=== PATIENT | female | born 1970 | race Hispanic/Latino ===

== ENCOUNTER 2016-06-18 06:34 | Day surgery (SDC) | payer OTHER ==
[2016-06-12 08:43] VITALS: BMI 27.7
[2016-06-18] MEDS ORDERED: Bacitracin 50,000 UNIT in Sodium Chloride 0.9% Irrig 1,000 ML IR SCH (07:15)
[2016-06-18] MEDS ORDERED: ceFAZolin IV 2 gm in Dextrose 50 ML IVPB ONE (07:26)
[2016-06-18] MEDS ORDERED: EPINEPHrine 1:1000 Nasal Sol(30mL) ONE (07:27)
--- NOTE | 2016-06-18 07:33 | CP.SDSHP ---
Same Day Surgery H & P - History Proposed Procedure: Left knee patellar tendon repair Pre-Op Diagnosis: Left patellar tendon rupture - Previous Medical/Surgical History Cardiac: Hypertension, Previous NE, Other Neuro: TIA/CVA Comments: PFO, echo and stress test on chart. CVA. highcholesterol. medical and cardiac clearance on chart. plavix held 7 days - Allergies Allergies: Allergies blueberry Allergy (Intermediate, Verified 06/05/15 12:21) RASH/SWELLING OF THROAT - Physical Exam Mental Status: Alert & Oriented x3 Heart: WNL Lungs: WNL - {Optional Preform as Required} Ortho: Other (LLE: +ROM ankle/toes, sensation intact, +DP/PT pulses, calves soft NT neg homans) Other Pertinent Findings: atient Name / ID : WALE ZHOU / [id number]. Exam Date : 06/06/2016 17:44:42 ( Approved ). Study Comment : Sex / Age : F / 46Y. Creator : Baudilio Dotson MD. Dictator : Baudilio Dtoson MD. Strickler Attendant : Brake Mechanic : Baudilio Dotson MD. Approver2 : Report Date : 06/09/2016 10:24:54. My Comment : . MRI left knee. History: Patellar tendon rupture. Comparison: None available. Technique: Multi-echo multiplanar sequences were performed through the left knee without the use of intravenous contrast. Findings: Thickening, fraying, and increased signal seen within the visualized anterior cruciate ligament suggestive for a moderate grade sprain with some partial interstitial tearing. Posterior cruciate ligament is preserved. Linear grade 1 intrasubstance degeneration in the posterior horn of the medial meniscus without gross tear. Globular grade 2 intrasubstance degeneration in the anterior root and horn of the lateral meniscus. Low-grade sprain of the medial collateral ligament. Lateral collateral ligament complex structures appear preserved. Quadriceps tendon is preserved. Complete rupture of the patellar tendon from its insertion on the inferior bony patella with superior retraction of the bony patella with associated bone bruising at the inferior bony patella. Prominent amount of fluid, edema, and hemorrhage within the prepatellar soft tissues. Partial tearing of the lateral patellar retinaculum with a moderate grade sprain of the medial patellar retinaculum. Patellar cartilage is preserved. Femorotibial articular cartilage is grossly preserved. Three and 5 millimeter subchondral cyst formation noted within the mid proximal tibia near the intercondylar notch. Additional prominent amount of loculated fluid, edema, and hemorrhage seen at the lateral soft tissues at the level of the distal lateral femur. Impression: 1. Complete rupture of the patellar tendon from its insertion on the inferior bony patella with superior retraction of the bony patella with associated bone bruising at the inferior bony patella. The patellar tendon is displaced approximately 1.2 centimeters inferiorly. Prominent amount of fluid, edema, and hemorrhage within the prepatellar soft tissues. 2. Partial tearing of the lateral patellar retinaculum with a moderate grade sprain of the medial patellar retinaculum. 3. Thickening, fraying, and increased signal seen within the visualized anterior cruciate ligament suggestive for a moderate grade sprain with some partial interstitial tearing. 4. Linear grade 1 intrasubstance degeneration in the posterior horn of the medial meniscus without gross tear. Globular grade 2 intrasubstance degeneration in the anterior root and horn of the lateral meniscus. 5. Low-grade sprain of the medial collateral ligament. 6. Three and 5 millimeter subchondral cyst formation noted within the mid proximal tibia near the intercondylar notch. 7. Additional prominent amount of loculated fluid , edema, and hemorrhage seen at the lateral soft tissues at the level of the distal lateral femur. These findings were preliminarily reported at 7:16 p.m. on 06/06/[address] Carmelita Ferguson from [facility]. - Impression Impression: 46F with left knee patellar tendon rupture for repair Pt. Evaluated Today:Candidate for Anesthesia & Procedure: Yes - Date & Time Date: 06/18/16 Time: 07:34 Short Stay Discharge - Short Stay Discharge Admitting Diagnosis/Reason for Visit: PATELLAR TENDON TEAR Disposition: HOME/ ROUTINE Past Patient History - Infectious Disease Hx of Infectious Diseases: None - Tetanus Immunizations Tetanus Immunization: Unknown - Past Medical History & Family History Past Medical History?: Yes - Past Social History Smoking Status: Never Smoked - CARDIAC Hx Cardiac Disorders: Yes Hx Heart Attack: Yes (NSTEMI 2010, 05/28 neg EST at ) Hx Hypercholesterolemia: Yes Hx Hypertension: Yes Hx Pacemaker: No Other/Comment: Hole in the heart - PULMONARY Hx Respiratory Disorders: No - NEUROLOGICAL Hx Neurological Disorder: Yes Hx Transient Ischemic Attacks (TIA): Yes (2 years ago) - HEENT Hx HEENT Problems: No - RENAL Hx Chronic Kidney Disease: No - ENDOCRINE/METABOLIC Hx Endocrine Disorders: No - HEMATOLOGICAL/ONCOLOGICAL Hx Blood Disorders: No - INTEGUMENTARY Hx Dermatological Problems: No - MUSCULOSKELETAL/RHEUMATOLOGICAL Hx Musculoskeletal Disorders: Yes (torn patella tendon) Hx Falls: Yes - GASTROINTESTINAL Hx Gastrointestinal Disorders: No - GENITOURINARY/GYNECOLOGICAL Hx Genitourinary Disorders: No - PSYCHIATRIC Hx Psychophysiologic Disorder: No - SURGICAL HISTORY Hx Surgeries: Yes Hx Section: Yes Other/Comment: JOHN - ANESTHESIA Hx Anesthesia: Yes Hx Anesthesia Reactions: Yes (SEVERE VOMITING) Hx Malignant Hyperthermia: No Has any member of the family had a problem w/ anesthesia?: No
[2016-06-18] MEDS ORDERED: Midazolam 2 MG/2 ML VIAL ONE ×2 (08:02→14:16)
[2016-06-18] MEDS ORDERED: Propofol 10 mg/ml Inj (20 ML) ONE (08:02)
[2016-06-18] MEDS ORDERED: Lactated Ringer's 1,000 ML IV ONE ×4 (08:18→11:11)
[2016-06-18] MEDS ORDERED: Succinylcholine Chloride 20 mg/ml Syr (5 ml) IV ONE (09:27)
[2016-06-18] MEDS ORDERED: Rocuronium 10 mg/ml (5 ml) ONE (09:27)
[2016-06-18] MEDS ORDERED: Neostigmine Methylsulfate 3mg/3ml Syringe IV ONE (11:33)
[2016-06-18] MEDS ORDERED: Atropine Sulfate 0.4 mg/ml (0.8mg/2ml) Syringe IV ONE (11:33)
[2016-06-18] MEDS ORDERED: Oxycodone/Acetaminophen 5/325 mg Tab PO PRN (11:41)
[2016-06-18] MEDS ORDERED: Sodium Chloride 0.9% 1,000 ML IV SCH (11:45)
[2016-06-18] MEDS ORDERED: ceFAZolin IV 2 gm in Dextrose 50 ML IVPB SCH (11:45)
[2016-06-18] MEDS: HYDROmorphone 0.5 mg/0.5 ml ISec IVP PRN ×6 (11:55→22:36)
[2016-06-18] MEDS ORDERED: Lactated Ringer's 1,000 ML IV SCH (12:00)
--- NOTE | 2016-06-18 12:55 | PCM.SURG1 ---
Surgeon's Initial Post Op Note - Surgeon's Notes Surgeon: Chaz Smith MD Road Grader: Fuad Morris PA-C Type of Anesthesia: General Endo Anesthesia Administered By: Dr. Michaels Pre-Operative Diagnosis: Left patellar tendon tear. left medial meniscal tear Operative Findings: Tourniquet: 90 min @ 300mmHg Post-Operative Diagnosis: same Operation Performed: Left patellar tendon primary repair. left arthroscopic medial meniscal repair. synovectomy. chondroplasty trochlea Specimen/Specimens Removed: none Estimated Blood Loss: EBL {In ML}: 50 Blood Products Given: N/A Drains Used: No Drains Post-Op Condition: Fair Date of Surgery/Procedure: 06/18/16 Time of Surgery/Procedure: 12:59
[2016-06-18] MEDS ORDERED: Bupivacaine 0.5% Inj(30mL) ONE (13:17)
[2016-06-18] MEDS ORDERED: Sodium Chloride 0.9% 20 ML IV ONE (13:17)
--- NOTE | 2016-06-18 14:36 | PCM.ANESB3 ---
Femoral Nerve Block - Femoral Nerve Block Date of Procedure: 06/18/16 Anesthesiologist: Caitlyn Pre-Procedure Diagnosis: Patellar Tendon Tear Post-Procedure Diagnosis: Patellar Tendon Tear Procedure Performed: Femoral Nerve Block Left - Procedure Femoral Nerve Block: The procedure was explained to the patient that it is for the post-operative pain management. Consent was obtained after a thorough discussion with the patient regarding the benefits and possible complications of local anesthetic block of the femoral nerve at the inguinal crease area. The patient was brought to the operating room and standard monitors were applied. Time-out was held with the circulating nurse to confirm the correct surgery and the appropriate block. After applying oxygen by nasal cannula and administering IV Sedation, patient was placed in supine position with fully extended lower extremities and the left groin exposed. The femoral artery was then carefully palpated. The ultrasound transducer was then applied to this area in the transverse plane and the femoral nerve was visualized lateral to the femoral artery and underneath the fascia iliaca. After thorough identification, the inguinal crease area was prepped with chloroprep. At this point, a #22 gauge Stimuplex 4-inch needle was inserted immediately lateral to the femoral artery pulse at the inguinal crease and advanced perpendicularly. The needle was inserted to the ultrasound transducer in-plane towards the femoral nerve in a [id number] direction. Needle advancement was performed carefully under direct ultrasound visualization. After negative aspiration, _20 cc of 0.25 % bupivicaine was injected. Under ultrasound guidance the local anesthetics were observed spreading below fascia iliaca and around the femoral nerve. The needle was removed intact and sterile dressing was applied. The patient had stable vital signs, was conscious and in no apparent distress.
[2016-06-18] MEDS ORDERED: Midazolam 2 MG/2 ML VIAL IVP ONE (15:23)
--- NOTE | 2016-06-18 15:26 | RAD ---
PROCEDURE: Left Knee Radiographs. HISTORY: COMPARISON: None available. FINDINGS: Images are obtained through a cast which obscures osseous detail. Surgical mik. Degenerative changes. Rotated lateral view limits evaluation. No acute displaced fracture or dislocation identified. IMPRESSION: Images are obtained through a cast which obscures osseous detail. Surgical mik. Degenerative changes.
[2016-06-18] MEDS ORDERED: Sodium Chloride 0.9% 1,000 ML IV ONE (15:50)
[2016-06-18 16:56] VITALS: RESP 20
[2016-06-19 01:43] VITALS: O2SAT 99
[2016-06-19] MEDS: HYDROmorphone 0.5 mg/0.5 ml ISec IVP PRN ×2 (02:26→06:47)
--- NOTE | 2016-06-19 07:48 | CP.PCM.PN ---
Subjective - Date & Time of Evaluation Date of Evaluation: 06/19/16 Time of Evaluation: 07:45 - Subjective Subjective: Patient states she had n/v overnight, but currently no nausea. She says she is dizzy after they gave her pain medication. She says she feels weak. Denies CP/ SOB/dizziness. Denies numbness/tingling. Objective - Vital Signs/Intake and Output Vital Signs (last 24 hours): Temp Pulse Resp BP Pulse Ox 98.7 F 75 20 125/78 99 06/18/16 23:10 06/18/16 23:10 06/18/16 23:10 06/18/16 23:10 06/18/16 23:10 Intake and Output: 06/19/16 06/19/16 06:59 18:59 Intake Total 420 Output Total 300 Balance 120 - Medications Medications: Current Medications Aspirin (Aspirin Chewable) 81 mg PO DAILY [facility] Clopidogrel Bisulfate (Plavix) 75 mg PO QAM [facility] Docusate Sodium (Colace) 100 mg PO BID [facility] Last Admin: 06/18/16 17:31 Dose: 100 mg Enoxaparin Sodium (Lovenox) 40 mg SC DAILY [facility] Hydromorphone HCl (Dilaudid) 0.5 mg IVP Q4H PRN PRN Reason: Pain, severe (8-10) Last Admin: 06/19/16 06:47 Dose: 0.5 mg Losartan Potassium (Cozaar) 25 mg PO QAM [facility] Metoprolol Succinate (Toprol Xl) 50 mg PO QAM [facility] Ondansetron HCl (Zofran Inj) 4 mg IVP Q4H PRN PRN Reason: Nausea/Vomiting Oxycodone/Acetaminophen (Percocet 5/325 Mg Tab) 2 tab PO Q4H PRN PRN Reason: Pain, severe (8-10) Stop: 06/21/16 11:42 Rosuvastatin Calcium (Crestor) 10 mg PO [facility] Last Admin: 06/18/16 21:21 Dose: 10 mg - Constitutional Appears: Well, No Acute Distress - Extremities Exam Additional comments: +DP/PT pulses cast intact heel elevated sensation intact to SP/DP/saph/med/lat plant - Neurological Exam Neurological Exam: Alert, Awake, Oriented x3 Neuro motor strength exam: Left Lower Extremity: 5 (+DF/PF ankle, flex/ext toes) - Psychiatric Exam Psychiatric exam: Normal Affect, Normal Mood - Skin Skin Exam: Dry, Intact, Normal Color, Warm Assessment and Plan (1) Rupture of left patellar tendon Assessment & Plan: POD#1 s/p left patellar tendon primary repair, left knee arthroscopy and medial meniscal repair -will change medication to address dizziness -zofran prn nausea -encourage PO intake -med/cardiology consults as per Dr. Delong -PT/OT -VTE proph with lovenox -restart plavix today -will plan for d/c home in afternoon if patient tolerates PT and dizziness improves. -d/w Dr Delong, agrees with above Status: Acute
[2016-06-19 07:57] LABS: HEMATOCRIT 37.4 % (34.0-47.0); MEAN CELL VOLUME 95.7 fL (81.0-99.0); MEAN CORPUSCULAR HEMOGLOBIN 33.4 pg (27.0-31.0); MEAN CORPUSCULAR HGB CONC 34.9 g/dL (33.0-37.0); MEAN PLATELET VOLUME 9.3 fL (7.2-11.7); RED CELL DISTRIBUTION WIDTH 13.5 % (11.5-14.5); WHITE BLOOD COUNT 10.8 K/uL (4.8-10.8)
[2016-06-19 08:36] VITALS: BP 128/88; PULSE 85; TEMP 99.1
[2016-06-19 08:44] LABS: CHLORIDE 99 mmol/L (98-107)
[2016-06-19 08:45] LABS: POTASSIUM 3.7 mmol/L (3.6-5.2); SODIUM 140 mmol/L (132-148)
[2016-06-19 08:47] LABS: GFR AFRICAN-AMERICAN > 60
[2016-06-19 08:48] LABS: BLOOD UREA NITROGEN 8 mg/dL (7-17); CALCIUM 8.5 mg/dl (8.6-10.4); CARBON DIOXIDE 29 mmol/L (22-30); GLUCOSE,RANDOM 91 mg/dL (65-105)
[2016-06-19] MEDS ORDERED: Metoprolol Succinate 50 mg XL Tab PO SCH (10:00)
[2016-06-19] MEDS ORDERED: Enoxaparin 40 mg Syringe SC SCH (10:00)
--- NOTE | 2016-06-19 12:06 | CP.PCM.CON ---
History of Present Illness - History of Present Illness History of Present Illness: I was asked to see patient by Dr. Mayo. Patient is a 46 year old female with a history of HTN, CAD hypercholesterolemia who is s/p L patellar repair. She fell and sustained a fracture. The patient states she developed dizziness. She denied chest pain. Cardiology consultation was requested. She feels comfortable. Review of Systems - Constitutional Constitutional: absent: As Per HPI, Anorexia, Chills, Daytime Sleepiness, Excessive Sweating, Fatigue, Fever, Frequent Falls, Headache, Increased Appetite , Lethargy, Malaise, Night Sweats, Snoring, Sleep Apnea, Weight Gain, Weight Loss, Weakness, Other - EENT Eyes: absent: As Per HPI, Blind Spots, Blurred Vision, Change in Vision, Decreased Night Vision, Diplopia, Discharge, Dry Eye, Exophthalmos, Floaters, Irritation, Itchy Eyes, Loss of Peripheral Vision, Pain, Photophobia, Requires Corrective Lenses, Sees Flashes, Spots in Vision, Tunnel Vision, Other Visual Disturbances, Loss of Vision, Other Ears: absent: As Per HPI, Decreased Hearing, Ear Discharge, Ear Pain, Tinnitus, Abnormal Hearing, Disequilibrium, Dizziness, Other Nose/Mouth/Throat: absent: As Per HPI, Epistaxis, Nasal Congestion, Nasal Discharge, Nasal Obstruction, Nasal Trauma, Nose Pain, Post Nasal Drip, Sinus Pain, Sinus Pressure, Bleeding Gums, Change in Voice, Dental Pain, Dry Mouth, Dysphagia, Halitosis, Hoarsness, Lip Swelling, Mouth Lesions, Mouth Pain, Odynophagia, Sore Throat, Throat Swelling, Tongue Swelling, Facial Pain, Neck Pain, Neck Mass, Other - Cardiovascular Cardiovascular: absent: As Per HPI, Acrocyanosis, Chest Pain, Chest Pain at Rest , Chest Pain with Activity, Claudication, Diaphoresis, Dyspnea, Dyspnea on Exertion, Edema, Irregular Heart Rhythm, Pain Radiating to Arm/Neck/Jaw, Leg Edema, Leg Ulcers, Lightheadedness, Orthopnea, Palpitations, Paroxysmal Nocturnal Dyspnea, Pedal Edema, Radiating Pain, Rapid Heart Rate, Slow Heart Rate, Syncope, Other - Respiratory Respiratory: absent: As Per HPI, Cough, Dyspnea, Hemoptysis, Dyspnea on Exertion , Wheezing, Snoring, Stridor, Pain on Inspiration, Chest Congestion, Excessive Mucous Production, Change in Mucous Color, Pain with Coughing, Other - Genitourinary Genitourinary: absent: As Per HPI, Change in Urinary Stream, Difficulty Urinating, Dysuria, Flank Pain, Hematuria, Pyuria, Nocturia, Urinary Incontinence, Urinary Frequency, Urinary Hesitance, Urinary Urgency, Voiding Freq/Small Amts, Freq UTI, Hx Renal/Bladder Calculi, Hx /Renal Surgery, Bladder Distension, Other - Musculoskeletal Musculoskeletal: absent: As Per HPI, Abnormal Gait, Arthralgias, Atrophy, Back Pain, Deformity, Joint Swelling, Limited Range of Motion, Loss of Height, Muscle Cramps, Muscle Weakness, Myalgias, Neck Pain, Numbness, Radiating Pain into Limb, Stiffness, Tingling, Other - Integumentary Integumentary: absent: As Per HPI, Acne, Alopecia, Bleeding Lesions, Change in Hair, Change in Nails, Change in Pigmentation, Changing Lesions, Dry Skin, Erythema, Furuncle, Hirsutism, Lesions, New Lesions, Non-Healing Lesions, Photosensitivity, Pruritus, Rash, Skin Pain, Skin Ulcer, Sores, Striae, Swelling , Unusual Bruising, Wounds, Jaundice, Other - Neurological Neurological: absent: As Per HPI, Abnormal Gait, Abnormal Hearing, Abnormal Movements, Abnormal Speech, Behavioral Changes, Burning Sensations, Confusion, Convulsions, Disequilibrium, Dizziness, Numbness, Focal Weakness, Frequent Falls , Headaches, Lack of Coordination, Loss of Vision, Memory Loss, Paresthesias, Radicular Pain, Restless Legs, Sensory Deficit, Syncope, Tingling, Tremor, Vertigo, Weakness, Other Visual Disturbances, Other - Psychiatric Psychiatric: absent: As Per HPI, Abnormal Sleep Pattern, Anhedonia, Anxiety, Auditory Hallucinations, Behavioral Changes, Change in Appetite, Change in Libido, Confusion, Depression, Difficulty Concentrating, Hallucinations, Homicidal Ideation, Hopelessness, Irritability, Memory Loss, Mood Swings, Panic Attacks, Paranoia, Suicidal Ideation, Visual Hallucinations, Tactile Hallucinations, Other - Endocrine Endocrine: absent: As Per HPI, Change in Body Appearance, Change in Libido, Cold Intolorance, Deepening of Voice, Excessive Sweating, Fatigue, Flushing, Heat Intolorance, Increase in Ring/Shoe/Hat Size, Palpitations, Polydipsia, Polyphagia, Polyuria, Other - Hematologic/Lymphatic Hematologic: absent: As Per HPI, Easy Bleeding, Easy Bruising, Lymphadenopathy, Other Past Patient History - Infectious Disease Hx of Infectious Diseases: None - Tetanus Immunizations Tetanus Immunization: Unknown - Past Medical History & Family History Past Medical History?: Yes - Past Social History Smoking Status: Never Smoked - CARDIAC Hx Cardiac Disorders: Yes Hx Heart Attack: Yes (NSTEMI 2010, 05/28 neg EST at ) Hx Hypercholesterolemia: Yes Hx Hypertension: Yes Hx Pacemaker: No Other/Comment: Hole in the heart - PULMONARY Hx Respiratory Disorders: No - NEUROLOGICAL Hx Neurological Disorder: Yes Hx Transient Ischemic Attacks (TIA): Yes (2 years ago) - HEENT Hx HEENT Problems: No - RENAL Hx Chronic Kidney Disease: No - ENDOCRINE/METABOLIC Hx Endocrine Disorders: No - HEMATOLOGICAL/ONCOLOGICAL Hx Blood Disorders: No - INTEGUMENTARY Hx Dermatological Problems: No - MUSCULOSKELETAL/RHEUMATOLOGICAL Hx Musculoskeletal Disorders: Yes (torn patella tendon) Hx Falls: Yes - GASTROINTESTINAL Hx Gastrointestinal Disorders: No - GENITOURINARY/GYNECOLOGICAL Hx Genitourinary Disorders: No - PSYCHIATRIC Hx Psychophysiologic Disorder: No - SURGICAL HISTORY Hx Surgeries: Yes Hx Section: Yes Other/Comment: JOHN - ANESTHESIA Hx Anesthesia: Yes Hx Anesthesia Reactions: Yes (SEVERE VOMITING) Hx Malignant Hyperthermia: No Has any member of the family had a problem w/ anesthesia?: No Meds Allergies/Adverse Reactions: Allergies Allergy/AdvReac Type Severity Reaction Status Date / Time blueberry Allergy Intermediate RASH/SWELLING Verified 06/05/15 12:21 OF THROAT - Medications Medications: Current Medications Aspirin (Aspirin Chewable) 81 mg PO DAILY [facility] Last Admin: 06/19/16 10:51 Dose: 81 mg Clopidogrel Bisulfate (Plavix) 75 mg PO [facility] Last Admin: 06/19/16 10:52 Dose: 75 mg Docusate Sodium (Colace) 100 mg PO BID [facility] Last Admin: 06/19/16 10:52 Dose: 100 mg Enoxaparin Sodium (Lovenox) 40 mg SC DAILY [facility] Last Admin: 06/19/16 10:56 Dose: 40 mg Losartan [facility] ([facility]) [facility] Last Admin: 06/19/16 10:52 Dose: 25 mg Metoprolol Succinate (Toprol Xl) [facility] Last Admin: 06/19/16 10:52 Dose: 50 mg Morphine Sulfate (Morphine) 2 mg IVP Q4 PRN PRN Reason: Pain, moderate (4-7) Ondansetron HCl (Zofran Inj) 4 mg IVP Q4H PRN PRN Reason: Nausea/Vomiting Last Admin: 06/19/16 08:02 Dose: 4 mg Oxycodone/Acetaminophen (Percocet 5/325 Mg Tab) 2 tab PO Q4H PRN PRN Reason: Pain, severe (8-10) Stop: 06/21/16 11:42 Last Admin: 06/19/16 10:51 Dose: 2 tab Rosuvastatin Calcium (Crestor) 10 mg PO HS [facility] Last Admin: 06/18/16 21:21 Dose: 10 mg Physical Exam - Constitutional Appears: Non-toxic - Head Exam Head Exam: NORMAL INSPECTION - Eye Exam Eye Exam: Normal appearance - ENT Exam ENT Exam: Mucous Membranes Moist - Neck Exam Neck exam: Positive for: Full Rom - Respiratory Exam Respiratory Exam: NORMAL BREATHING PATTERN - Cardiovascular Exam Cardiovascular Exam: REGULAR RHYTHM - GI/Abdominal Exam GI & Abdominal Exam: Normal Bowel Sounds - Rectal Exam Rectal Exam: Deferred - Extremities Exam Extremities exam: Negative for: pedal edema - Back Exam Back exam: NORMAL INSPECTION - Psychiatric Exam Psychiatric exam: Normal Affect - Skin Skin Exam: Normal Color Results - Vital Signs Recent Vital Signs: Last Vital Signs Temp 99.1 F 06/19/16 08:36 Pulse 85 06/19/16 08:36 Resp 20 06/19/16 08:36 BP 128/88 06/19/16 08:36 Pulse Ox 99 06/19/16 08:36 - Labs Result Diagrams: 06/19/16 07:43 06/19/16 07:43 Labs: Laboratory Results - last 24 hr 06/19/16 07:43 WBC 10.8 RBC 3.91 Hgb 13.1 Hct 37.4 MCV 95.7 MCH 33.4 H MCHC 34.9 RDW 13.5 Plt Count 189 MPV 9.3 Sodium 140 Potassium 3.7 Chloride 99 Carbon Dioxide 29 Anion Gap 17 BUN 8 Creatinine 0.8 Est GFR ( Amer) > 60 Est GFR (Non-Af Amer) > 60 Random Glucose 91 Calcium 8.5 L - EKG Data EKG Interpreted by: Myself Assessment & Plan (1) Coronary atherosclerosis Assessment and Plan: no angina. continue antiplatelet therapy Status: Chronic (2) Hyperlipidemia Assessment and Plan: statin therapy Status: Chronic (3) Dizziness Assessment and Plan: likely medication related Status: Acute (4) HTN (hypertension) Assessment and Plan: blood pressure is controlled Status: Acute
--- NOTE | 2016-06-20 12:31 | CON ---
DATE: 06/19/2016 CHIEF COMPLAINT: Pain in the legs, history of blood pressure. HISTORY OF PRESENT ILLNESS: The patient is a 46-year-old, my private patient, history of hypertension, coronary artery disease, hypercholesterolemia, status post patellar repair. According to patient, she had a fall, sustained an injury. The patient states she developed dizziness. Then, Dr. Smith did the surgery and my consult was requested to see the patient for blood pressure, coronary artery disease and dizziness. PAST MEDICAL HISTORY: As above, history of hypertension, hypercholesterolemia, coronary artery disease, history of heart attack, NSTEMI 2010, history of TIA 2 years ago, now had torn patellar tendon, status post surgery, h/o JOHN. ALLERGIES: THE PATIENT IS ALLERGIC WITH BLUEBERRIES. HOME MEDICATIONS: Aspirin, Plavix, Colace, Cozaar, Toprol. REVIEW OF SYSTEMS: The patient seen and examined on the bedside on 06/19, having dressing on the left knee. Complaining about pain and nauseous. Otherwise, no fever, no chills, no headache, no dizziness, no hematuria, no hematochezia. PHYSICAL EXAMINATION: VITAL SIGNS: Temperature 99.1, pulse 85, respiratory rate 20, blood pressure 128/88, pulse oximetry 99%. HEENT: Head normocephalic, atraumatic. Eyes: PERRLA. Extraocular muscles intact. Conjunctivae pink. Eyelids unremarkable. Nose patent. Mucous membranes moist. NECK: Supple. No carotid bruit, no JVD, no thyromegaly. CHEST: Bilaterally symmetrical. HEART: S1, S2 positive. LUNGS: Clear to auscultation. ABDOMEN: Soft. Bowel sounds positive. No organomegaly. EXTREMITIES: Left lower extremity has dressing and is tender, range of motion is restricted. Both upper extremities, no edema, no cyanosis. LABORATORIES: White blood cells 10.8, hemoglobin 13.1, hematocrit 37.4, platelets 189. Sodium 140, potassium 3.7, BUN 8, creatinine 0.8, glucose 91. ASSESSMENT AND PLAN: The patient is a 46-year-old lady with coronary artery disease, no angina, seen by visual educator, Dr. Laurita Carlin. Continue present treatment. Hypercholesterolemia, getting statin medication. Labs were done recently. Dizziness, maybe due to the medications. Hypertension, taking blood pressure medicines, blood pressure is under control. History of transient ischemic attack, stable, history of transesophageal echocardiogram, history of non-ST elevation myocardial infarction, now torn patellar ligament. Surgery done by Dr. Smith. Seen by me on 06/19/2016. Patent foramen ovale, echo and stress test on chart, Plavix was on hold by the visual educator for 7 days. The patient discharged on the second day. Follow up as outpatient. Physical therapy. We will follow up. Sol Zhang MD cc: [id number] TT: 06/20/2016 12:30:00 Confirmation # [id number] Dictation # [id number] MTDD
--- NOTE | 2016-07-10 06:59 | OP ---
PROCEDURE DATE: 06/18/2016 PREOPERATIVE DIAGNOSES: Left knee: 1. Complete patellar tendon tear. 2. Medial meniscal tear. 3. Synovitis. 4. Chondromalacia patella. POSTOPERATIVE DIAGNOSES: 1. Complete patellar tendon tear. 2. Complex medial meniscal tear in the red-red zone (repairable). 3. Synovitis. 4. Symptomatic medial plica band. 5. Chondromalacia patella/trochlea/medial femoral condyle. PROCEDURE: Left knee: 1. Open patellar tendon primary repair. 2. Arthroscopic medial meniscal repair. 3. Arthroscopic extensive synovectomy and resection of symptomatic plica band. 4. Arthroscopic chondroplasty patella/trochlea/medial femoral condyle. 5. Placement in cylinder cast. SURGEON: Annelise Smith M.D. CUSTOMER OPERATIONS ASSOCIATE: Pantera Morris PA-C. JUSTIFICATION FOR CUSTOMER OPERATIONS ASSOCIATE: Pantera Morris is a certified physician technician assistant and her skilled surgic al services were an absolute necessity for successful completion of the procedure as she provided ski lled surgical assistance with positioning of patient, positioning of extremity, management of surgica l field, retraction of neurovascular structures, preparation of patellar tendon for patellar tendon r epair, preparation of patella with passage of patellar tunnels for passage of suture and repair, plac ement of suture anchors, passage of suture and fixation of patellar tendon, wound closure, arthroscop ic procedure and management of arthroscopic equipment, All-Inside meniscal repair, chondroplasty, wou nd closure, placement of cylinder cast. Pantera Morris was present for the entire case and was an abs olute necessity for successful completion of the procedure. ANESTHESIA: General endotracheal anesthesia with a postoperative regional nerve block placed by [facility] staff in PACU. COMPLICATIONS: None. SPECIMENS: None. ESTIMATED BLOOD LOSS: 50 mL TOURNIQUET TIME: 90 minutes at 300 mmHg. DRAINS: None. DISPOSITION: The patient was extubated and transferred to PACU in stable condition and tolerated the procedure well. INDICATIONS FOR SURGERY: The patient is a 46-year-old female with a past medical history significant for history of patent foramen ovale, hypercholesterolemia, hypertension who presented to the office for the first time under my care on 06/09/2016 with left knee pain and swelling and inability to exten d her knee. The patient states that on 06/06/2016, she fell while walking in [place], landing on her left knee, r esulting in immediate 01/20 pain localized to the left knee and inability to ambulate. She went to [facility] at [facility] where she was evaluated by ER staff and after review of imaging, she was diagnosed with a patellar tendon tear. She had undergone an MRI while in the ER at [place] done at [facility] on 06/06/2016, which was read as: 1. Complete rupture of the patellar tendon from its insertion in the inferior bony patella with supe rior retraction of bony patella and associated bone bruising of the inferior bony patella. The cobos lar tendon is displaced approximately 1.2 cm inferiorly. 2. Partial tearing of the lateral patellar retinaculum with moderate grade sprain of medial patellar retinaculum. 3. Thickening frame increased signal seen within the visualized anterior cruciate ligament suggestiv e of moderate grade sprain with some interstitial tearing. 4. Grade I intrasubstance degeneration of the posterior horn of medial meniscus without gross tear. Globular grade II intrasubstance degeneration of the anterior horn and posterior horn and root of th e lateral meniscus. 5. Low-grade sprain of the medial collateral ligament. 6. Three and 5 mm subchondral cyst formation noted within the proximal tibia near the intercondylar notch. 7. Additional prominent amount of loculated fluid edema and hemorrhage seen at the lateral soft tiss ues at the level of the distal lateral femur. She was placed in a knee immobilizer and told to follow up in my office. On evaluation in the office , she did have significant swelling and a palpable defect at the patellar tendon with inability to pe rform a straight leg raise or extend her knee. I reviewed her MRI with her and her treatment options and after discussing treatment options, the patient understood that she was indicated for left knee patellar tendon repair with possible arthroscopic treatment of her medial meniscal tear and intraarti cular pathology. On my review of the MRI, I saw significant chondromalacia of the patella and periph eral tearing of the medial meniscus. The patient clinically had not only her patellar tendon pain, b ut also positive Mayelin and medial joint line pain at the medial meniscus. The patient had a past medical history of patent foramen ovale and has been treated with Plavix for the past few years by [facility] weather strip mechanic. Her last dose of Plavix was 24 hours prior to presentation in the office on 7. We decided to take our time and obtain medical clearance and abstain from the use of Plavix for 7 days prior to surgery and she was scheduled for surgery at [facility] on 06/18/2016. This would be approximately 2 weeks post injury. She obtained her cardiac clearance from her weather strip mechanic and w as cleared to be off of Plavix for at least 7 days prior to surgery and was medically optimized and t he procedure was scheduled. We agreed on DVT prophylaxis postsurgery including Lovenox 40 mg once da bharath in conjunction with restarting her Plavix on postoperative day #1. She was indicated for left kn ee open patellar tendon primary repair, arthroscopic possible medial meniscal repair versus partial m edial meniscectomy, arthroscopic synovectomy, and all related indicated procedures including chondrop lasty or microfracture if indicated and can be done arthroscopically. The risks, benefits, and alter natives of procedure were discussed at length with the patient with the risks that were not limited t o infection, neurovascular damage, need for further surgery, failure of repair, failure of implants, development of blood clots including DVT and PE, development of chronic pain and disability, inabilit y to return to pre-injury level of activity, anesthesia reactions including . After answering a ll of her questions, both her and her accepted these risks and wished to proceed with surgery . Once again, she was referred for cardiac clearance and medical optimization and the procedure was scheduled at [facility] PROCEDURE IN DETAIL: The patient was identified in the preoperative holding area and the left knee w as marked for surgery. Once again, as described above, the risks, benefits, and alternatives of proc edure were discussed at length with the patient and informed consent was obtained. After brief discu ssion with anesthesia staff, perioperative IV antibiotics in the form of 2 g Ancef were administered and the patient was taken to the operating room and placed on a well-padded operating room table with all bony prominences and superficial neurovascular structures well padded. A final timeout was done with the surgeon, anesthesia staff, and OR staff, all in agreement with the patient, procedure being done, and extremity being operated on. The left lower extremity was then prepped and draped in stand hannah sterile fashion after a tourniquet was placed high on the left thigh and set to 300 mmHg. The li mb was then exsanguinated and tourniquet was inflated for a total tourniquet time of 90 minutes. A m edial parapatellar approach to the patella and the patellar tendon was employed with incision through skin down to subcutaneous tissue down to the level of the fascia and retinaculum. Immediately ident ified was a torn patellar tendon with a superiorly migrated patella. The patellar tendon itself was carefully exposed and isolated. With the use of a #5 FiberWire suture, whipstitches were placed with 4 ends of the suture exiting the proximal aspect of the patellar tendon with whipstitch on both the medial and lateral aspects of the tendon through its substance down to the insertion. The inferior a spect of the patella was debrided down to bleeding bone and a 1.5 mm drill bit was then used to creat e 3 tunnels parallel from inferior to superior for passage of the suture. There was a lateral tunnel , there was a medial tunnel, there was a middle tunnel. The lateral suture was passed through the la teral tunnel, the medial suture was passed through the medial tunnel and one end of each of the media l and lateral sutures were passed through the middle tunnel. Small vertical incisions were created a t the quadriceps insertion to allow for access to the suture and the corresponding sutures were passe d underneath the quadriceps tendon to be tied to each other and were clamped off. To back out the fix ation, two 4.75 SwiveLock anchors [employer] from [employer] were placed at the inferior pole of the p atella after the path was predrilled and tapped. The suture that was loaded in the SwiveLock anchors was then passed through the patellar tendon as backup fixation in a horizontal mattress fashion and tied down to the anchors. The sutures that were passed through the patella with the knee held in hyp erextension were then tied down with good tension achieved. The knee was taken through range of patel on down to 90 degrees flexion and the patellar tendon repair was found to be stable. Alternating #2 FiberWire suture and #1 Vicryl suture were used to reinforce the repair and to close down the soft ti ssue at the anterior aspect of the repair and inferior aspect of the patella. Any medial and lateral retinacular disruptions were then reapproximated with #1 Vicryl suture. The wound was then reapprox imated with #1 Vicryl suture followed by 2.0 Vicryl suture for subcutaneous tissue followed by staple s for skin. The wound had been copiously irrigated prior to wound closure. Attention was then turne d towards the arthroscopic portion of the case and anterolateral portal was created with stab incisio ns through skin down to subcutaneous tissue, down to level of capsule and the arthroscopic blunt tia sammie and trocar were inserted into the suprapatellar pouch. Arthroscopic camera was inserted and insu fflation with arthroscopic fluid was begun. Diagnostic arthroscopy was started after the anterior me dial portal was created through the inferior aspect of the incision. The accessory cannula was then inserted and the knee joint was copiously irrigated for better visualization. With the use of an art hroscopic probe, a diagnostic arthroscopy was then carried out. Immediately visualized was significa nt fibrillation of the patellar cartilage and chondromalacia almost encompassing the full thickness o f the medial facet of the patella and the lateral facet, but no full-thickness cartilage defect was s een with no exposed subchondral bone. The trochlea appeared to have grade I chondromalacia with no s ignificant unstable cartilage fragments. There was significant synovitis throughout the entire knee joint and suprapatellar pouch and anterior aspect with hypertrophic synovium and hypertrophic fat pad as well. There was a symptomatic plica band abutting the medial femoral condyle as well. Attention was then turned towards the medial compartment and with the use of arthroscopic probe, the medial me niscus was carefully evaluated and it was found to have a peripheral red-red zone tear/meniscal capsu lar separation at the posterior medial aspect of the posterior horn from the posteromedial capsule wi th ability to sublux the medial meniscus past the midpoint of the medial femoral condyle anteriorly. Attention was then turned towards the notch where intact ACL and PCL were seen. Attention was then turned towards the lateral compartment where intact lateral meniscus, lateral femoral condyle and lat eral tibial plateau were seen. CONTINUATION OF PROCEDURE: With the use of arthroscopic shaver and radiofrequency ablation, an exten sive synovectomy and resection of plica band were carried out while maintaining good hemostasis. Wit h the use of arthroscopic shaver and radiofrequency ablation, a chondroplasty of the zones of chondro malacia of the patella, trochlea and medial femoral condyle were carried out establishing a smooth ca rtilage contour. With the use of the [employer] All-Inside meniscal repair system, 8 implants in total were used to reestablish stability and reduce the medial meniscus posterior horn to the posterior me dial capsule. Alternating vertical mattress and horizontal mattress sutures with good capsular-sided fixation were placed with 8 implants in total fixating the capsule and reducing the meniscus. The r epair construct was tested after the repair was completed and found to be stable with an anatomic red uction of the medial meniscus to the posterior medial capsule. All arthroscopic fluid and debris wer e then removed from the knee joint. The final images were taken confirming a stable medial meniscal repair and chondroplasty of the cartilage zones of injury as well as adequate synovectomy and resecti on of plica band with good hemostasis achieved. All arthroscopic fluid and debris were then removed from the knee joint and arthroscopic portals were reapproximated with 2.0 Vicryl suture for deep tiss ue followed by mik for skin. Sterile dressings were applied followed by a layer of sterile cast padding from the malleoli up to the superior thigh, followed by placement in a well-padded cylinder c ast with a good malleoli pad. Once this was completed to satisfaction, the cast hardened, the patien t was then awakened and extubated from general anesthesia and transferred to PACU in stable condition . DISPOSITION: The patient will be discharged home when she has recovered from anesthesia. She has be en given a prescription for Lovenox 40 mg subcutaneous injection once daily and she will start postop erative day #1, as well as restart her Plavix postoperative day #1. She has been given a prescriptio n for Percocet for pain control. She will be weightbearing as tolerated in a cylinder cast until she follows up in the office. She has an appointment within 1 week at [facility]. She will c ontact me directly with any questions or concerns. Annelise Smith MD cc: [id number] TT: 07/10/2016 06:58:50 ar
== END 2016-06-19 15:00 | disposition home or self-care (01) ==
LOC: C.SDS 06:34 → C.6T 11:42 → C.SDS 06-19 15:00
PROVIDERS: ATTEND Student in an Organized Health Care Education/Training Program
DX: S76.112A Strain of left quadriceps muscle, fascia and tendon, initial encounter (principal); S83.242A Other tear of medial meniscus, current injury, left knee, initial encounter; W01.0XXA Fall on same level from slipping, tripping and stumbling without subsequent striking against object, initial encounter; Y92.410 Unspecified street and highway as the place of occurrence of the external cause; M65.862 Other synovitis and tenosynovitis, left lower leg; M67.52 Plica syndrome, left knee; M22.42 Chondromalacia patellae, left knee; Z86.73 Personal history of transient ischemic attack (TIA), and cerebral infarction without residual deficits; Z79.82 Long term (current) use of aspirin; R42 Dizziness and giddiness; I25.2 Old myocardial infarction; I25.10 Atherosclerotic heart disease of native coronary artery without angina pectoris; I10 Essential (primary) hypertension; E78.00 Pure hypercholesterolemia, unspecified; Q21.1 Atrial septal defect
CPT/HCPCS: 20999; 27380; 29875; 29883; 36415; 73560; 80048; 85027; 97116; 97162; 97166; 97530; 97535; C1713; G8978; G8979; G8987; G8988; J0690; J1170 ×2; J1650; J1885; J2250; J2405 ×2; J2704; J2710; J2765; J3010; J7040; J7120